=== PATIENT | female | born 1980 ===

== ENCOUNTER 2017-06-18 09:46 | Outpatient (CLI) | payer MEDICARE ==
--- NOTE | 2017-06-18 10:19 | Mammography Report ---
BILATERAL DIGITAL SCREENING MAMMOGRAM with CAD: 06/18/17 09:46:00 CLINICAL: Baseline screening. FINDINGS: The breasts are almost entirely fatty. No mass, architectural distortion or suspicious calcifications. IMPRESSION: No mammographic evidence of malignancy. BI-RADS CATEGORY: 1 - - Negative RECOMMENDATION: Routine mammographic screening beginning at age 40. COMMENT: Patient follow-up letters are generated by our [employer] application.
== END 2017-06-18 09:47 | disposition home or self-care (01) ==
LOC: SPVWC 09:46
PROVIDERS: ATTEND Internal Medicine
DX: Z12.31 Encounter for screening mammogram for malignant neoplasm of breast (principal)
CPT/HCPCS: 77067; G0202

== ENCOUNTER 2017-07-29 08:38 | Outpatient (CLI) | payer MEDICARE ==
--- NOTE | 2017-07-29 09:30 | Mammography Report ---
Diagnostic right mammogram. History: Recall for asymmetry. Findings: The spot compression image in the MLO projection demonstrates complete effacement of the previously noted asymmetric density. The 90 degree view demonstrates no suspicious findings. Impression: Negative right mammogram. BI-RADS code: 1. Recommendation: Annual screening.
== END 2017-07-29 08:39 | disposition home or self-care (01) ==
LOC: SPVWC 08:38
PROVIDERS: ATTEND Internal Medicine
DX: R92.2 Inconclusive mammogram (principal)
CPT/HCPCS: G0206-RT